=== PATIENT | female | born 1990 | race African-American/Black ===

== ENCOUNTER 2020-05-11 01:41 | Day surgery (SDC) | payer SELFPAY ==
[2020-05-11 02:08] VITALS: BMI 30.4
--- NOTE | 2020-05-11 03:21 | PDOC.FPROB ---
FMR OB H&P: HPI - History of Present Illness Chief Complaint: Vaginal bleeding Indentification: 29 yo @ 31.4 wks here for vaginal bleeding History of Present Illness: Patient reports vaginal bleeding that started at 0000 on 05/11 when she went to the bathroom. She noticed blood in the toilet bowel that turned the water red. She also noted blood when wiping. After coming to the hospital, she used the restroom and noted one more episode of injury prevention coordinator spotting. She denies intercourse or placing anything in her vagina for past 24-48 hrs. She reports that since the bleeding episode at 000, she has felt more frequent ctx-approximately every 10 minutes. She previously had irregular ctx. She denies dysuria, abdominal pain, vaginal discharge, vaginal LOF, nausea, vomiting, fever, and chills. She endorses good FM. She has never had bleeding in her . She is scheduled for repeat US on 05/13, prior growth needed better visualization, placenta was posterior on last US. Primary Care Physician: EDVIN FMR OB H&P: Current - Care : 2 Para: 1 Gestational age: 31.4 Due date: 07/09/2020 Dating Criteria: 9.5 week US Total weight gain: 1 lb Course/Complications: GDM-2 hr GTT with 2 hr glucose of 153 - OB Labs Blood type: A RH: positive Antibody Screen: negative HIV: negative HepBsAg: negative Rubella: immune Gonorrhea: negative Chlamydia: negative Pap Smear: NILM 1 hour gtt: fasting 81, 1 hr 175, 2 hr 153 GBS: unknown H&H: 30.5, 10.2 Platelets: 311 - Anatomy Survey Anatomy survey: Growth US completed, Hadlock 67, poor visualization, no evidence of placenta previa. Scheduled for repeat on 05/13. FMR OB H&P: History - Past Medical History PMH: none - OB History OB History: 1 2.5 yrs ago, uncomplicated - HEAD OF DIGITAL ADVERTISING & INTEGRATION History HEAD OF DIGITAL ADVERTISING & INTEGRATION History: Pap NILM before - Surgical History Sx History: none - Social History Social History: Lives at home with FOB and son - Family History Family History: Father with DM2 FMR OB H&P: Medications - Current Home Medications: Medication Instructions Recorded Confirmed Type 21/Iron Fu/Folic Acid 1 tablet PO DAILY 11/30/20 11/30/20 History [ Complete Caplet] Allergies/Adverse Reactions: Allergies Allergy/AdvReac Type Severity Reaction Status Date / Time No Known Allergies Allergy Verified 05/11/20 02:08 FMR OB H&P: ROS - Review of Systems General: denies: fever/chills, weight/appetite/sleep changes ENT: denies: nasal congestion, rhinorrhea Cardiovascular: denies: chest pain, palpitation Respiratory: denies: cough, congestion Gastrointestinal: denies: abdominal pain, diarrhea, constipation Genitourinary (Female): reports: vaginal bleeding, contractions. denies: incontinence, dysuria, vaginal discharge, vaginal pain, vaginal pressure Musculoskeletal: denies: pain, stiffness Neurologic: denies: syncope, headache FMR OB H&P: Vital Signs - Maternal Vital signs: BP 114/65 HR 87 SpO2 99 T 98.2 Wt 85.792 kg 5ft 6in - Heart Tones Baseline: 135 Variability: moderate Acceleration: present Deceleration: absent Category: category 1 [place] contractions every: 5 mins, irregular FMR OB H&P: Physical Exam - Physical Exam General: NAD, awake, alert and oriented HEENT: normocephalic and atraumatic, grossly normal vision, grossly normal hearing Heart: RRR, normal S1/S2, no murmurs/rubs/gallops General: CTAB, no respiratory distress, good air movement Abdomen: soft, gravid, non-tender, bowel sound present FMR OB H&P: A/P Discussion: Date/Time: 05/11/20 0319 29 yo @ 31.4 wks here for vaginal bleeding Vaginal bleeding - Concern for placenta previa vs other source of bleeding - Obtain US to evaluate for intrauterine/placental causes - speculum exam after US - monitor VS - Continuous FM - 1L LR bolus ANNY - aware, will monitor This H&P was discussed with Dr. Quijano who agree with the above documentation and plan. Addendum - Attending - Attending Attestation Date/Time: 05/11/201930 I personally evaluated the patient and discussed the management with Dr. Painter. I agree with the History, Examination, Assessment and Plan documented above with any addition or exceptions noted below.
[2020-05-11] MEDS ORDERED: hydrALAZINE 20 MG/ML VIAL SLOW IVP PRN (03:29)
[2020-05-11] MEDS ORDERED: Lactated Ringer's 1,000 ML IV SCH ×2 (03:30→05:30)
--- NOTE | 2020-05-11 05:23 | PDOC.BPN ---
- Brief Progress Note Patient doing well, contractions slowing down per patient and monitor. FHT 140, cat 1,ctx irregular Speculum exam:copious thick, white discharge, no blood, mucosal irritation VP3 sent, IVF started with 2 1L boluses. Will empirically treat with Diflucan Likely DC after diflucan given and bolus finishes. Case discussed with Dr. Quijano.
[2020-05-11] MEDS ORDERED: Fluconazole 100 MG TAB PO SCH (06:00)
--- NOTE | 2020-05-11 08:31 | ULT ---
PRELIMINARY REPORT/[facility]/EMERGENCY AFTER HOURS PROCEDURE: EXAM: US Obstetrical, Complete >14 weeks. CLINICAL HISTORY: HX: EPISODE OF VAG BLEEDING AT 31WKS. BLEEDING NOW RESOLVED. TECHNIQUE: Transabdominal imaging of the maternal pelvis and a > 14 week gestation with image documen tation. COMPARISON: None provided. FINDINGS: FETUS: There is a single living intrauterine gestation, estimated gestational age 33 weeks 2 days POSITION: position is vertex. HEART RATE: The heart rate is 136 beats per minute. BIOMETRICS: Based on composite biometry, the estimated gestational age by ultrasound is 33 weeks 2 days cor responding to the new date of 06/27/2020. The estimated weight is 2187 g. ANATOMIC SURVEY: The visualized anatomy is unremarkable. PLACENTA: The placenta is located to the RIGHT. No sonographic evidence for previa or abruption. AMNIOTIC FLUID: Within normal limits. The JUAN measures 16.5 cm CERVIX: Closed. Unremarkable as visualized. Measures 2.83.0 centimeters IMPRESSION: Single viable intrauterine . No acute abnormality. ELECTRONICALLY SIGNED BY: Brad Lucero MD May 11, 2020 4:33:02 AM CNC FIELD SERVICE ENGINEER This report is intended for review by the ordering physician only, in accordance of law. If you recei ve this report in error, please call [facility] at [phone]. FINAL REPORT OB ULTRASOUND: INDICATION: Vaginal bleeding. FINDINGS: 33 weeks and 2 days gestation by ultrasound. heart rate recorded at 136 beats/minute. Viable in trauterine . I am in agreement with the preliminary report issued by [facility]. POS: OFF
== END 2020-05-11 08:39 | disposition home or self-care (01) ==
LOC: L&D/OP 01:41
PROVIDERS: ATTEND Family Medicine
DX: O46.93 Antepartum hemorrhage, unspecified, third trimester (principal); O24.410 Gestational diabetes mellitus in pregnancy, diet controlled; Z3A.31 31 weeks gestation of pregnancy
CPT/HCPCS: 76815; 87480; 87510; 87660; 96360; 96361; 99283

== ENCOUNTER 2020-06-03 15:02 | Day surgery (SDC) | payer SELFPAY ==
[2020-06-03] MEDS ORDERED: hydrALAZINE 20 MG/ML VIAL SLOW IVP PRN (15:05)
--- NOTE | 2020-06-03 15:11 | PDOC.FPROB ---
FMR OB H&P: HPI - History of Present Illness Chief Complaint: Decreased movement Indentification: 30 yo at 34.6 wga by LMP/9.5 wk US History of Present Illness: Patient is a 30 yo at 34.6 wga by LMP/9.5 wk US who presents today with complaint of decreased movement for last 2 days. She has only felt the baby kick 1 or 2 times in the last 2 days. Patient was seen earlier today by her PCP Dr. Ayon at [facility] and was told to come to L&D for evaluation. Denies any LOF, vaginal bleeding, contractions, cramping, abdominal pain or back pain. Additionally patient has noticed a thick white vaginal discharge for the last few days. Denies any itching, burning, dysuria. Primary Care Physician: Nita FMR OB H&P: Current - Care : 2 Para: 1001 Gestational age: 34.6 Due date: 07/09/2020 Dating Criteria: LMP c/w 9.5 wk sono Course/Complications: Anemia of , Obesity, Glucose intolerance - OB Labs Blood type: A RH: positive Antibody Screen: negative HIV: negative RPR: negative HepBsAg: negative Rubella: immune Quad screen: unknown (not done) Urine drug screen: not done Gonorrhea: negative Chlamydia: negative Pap Smear: NILM in November 2019 3 hour GTT: 2 hr (81/175/153) GBS: negative H&H: 10.2/30.5 on 03/11/2020, CBC collected in office today Platelets: 311 - First Trimester Ultrasound First trimester: dating U/S at 9.5 wks - Anatomy Survey Anatomy survey: Hadlock 67.7%, borderline large cisterna magna (as of 05/12) - Additional Ultrasound Additional: F/U growth U/S on 05/12: Hadlock 86.3%, EFW 2170 g FMR OB H&P: History - Past Medical History PMH: denies - OB History OB History: 1 in 2018, uncomplicated - DYNAMITER History DYNAMITER History: Pap NILM in November 2019 - Surgical History Sx History: denies - Social History Social History: Lives at home with FOB and son. Denies tobacco, alcohol, or other drug use. - Family History Family History: T2DM in Father FMR OB H&P: Medications - Current Home Medications: Medication Instructions Recorded Confirmed Type 21/Iron Fu/Folic Acid 1 tablet PO DAILY 05/11/20 06/03/20 History [ Complete Caplet] Allergies/Adverse Reactions: Allergies Allergy/AdvReac Type Severity Reaction Status Date / Time No Known Allergies Allergy Verified 06/03/20 15:47 FMR OB H&P: ROS - Review of Systems General: denies: fever/chills, fatigue, recent trauma Eyes: denies: vision changes ENT: denies: nasal congestion, sore throat Cardiovascular: denies: chest pain, palpitation, edema Respiratory: denies: cough, congestion, shortness of breath Gastrointestinal: denies: abdominal pain, cramping, nausea, vomiting, diarrhea, constipation Genitourinary (Female): reports: vaginal discharge (white, thick). denies: dysuria, vaginal pain, vaginal bleeding, contractions, vaginal pressure Musculoskeletal: denies: pain, tenderness, swelling Neurologic: denies: numbness, weakness, loss of counsciousness, headache Integumentary: denies: itching, rash FMR OB H&P: Physical Exam - Physical Exam General: NAD, awake, alert and oriented HEENT: normocephalic and atraumatic, MMM, conjunctiva clear, no scleral icterus, grossly normal vision, grossly normal hearing Neck: supple, FROM Chest: non-tender to palpation Heart: RRR, normal S1/S2, no murmurs/rubs/gallops, pulses present, no edema General: CTAB, no respiratory distress, good air movement, no rales/rhonchi, no wheezing Abdomen: soft, gravid, non-tender Musculoskeletal: normal gait and station, pulses present, FROM in all four extremities Neurological: sensation to pain,touch and proprioception grossly normal, no focal deficit Skin: no rash, good tugor, no jaundice Lymphatic: no unusual bruising or bleeding Psychiatric: intact recent and remote memory, good judgement and insight, normal mood and affect - Pelvic Exam Vulva: normal hair distribution Deviation from normal: thick white vaginal discharge on exam Membranes: intact FMR OB H&P: A/P - Problem List (1) Decreased movement affecting management of mother, antepartum Status: Acute Code(s): O36.8190 - DECREASED MOVEMENTS, UNSP TRIMESTER, UNSP Qualifiers: Fetus number: single or unspecified fetus Qualified Code(s): O36.8190 - Decreased movements, unspecified trimester, not applicable or unspecified (2) 34 weeks gestation of Status: Acute Code(s): Z3A.34 - 34 WEEKS GESTATION OF (3) Vaginal discharge during in third trimester Status: Acute Code(s): O26.893 - OTH RELATED CONDITIONS, THIRD TRIMESTER; N89.8 - OTHER SPECIFIED NONINFLAMMATORY DISORDERS OF VAGINA (4) Anemia affecting in third trimester Status: Acute Code(s): O99.013 - ANEMIA COMPLICATING , THIRD TRIMESTER (5) Obesity affecting Status: Acute Code(s): O99.210 - OBESITY COMPLICATING , UNSPECIFIED TRIMESTER Qualifiers: Trimester: third trimester Qualified Code(s): O99.213 - Obesity complicating , third trimester (6) Glucose intolerance of Status: Acute Code(s): O99.810 - ABNORMAL GLUCOSE COMPLICATING Disposition: 30 yo @ 34.6 wks here for decreased movement: Decreased Movement in Third Trimester - Obtain BPP US and NST to evaluate - monitor VS - Continuous FM Vaginal Discharge -will obtain VP3 swab -call patient with results, she has follow up scheduled at [facility] on 06/08/2020 A1GDM -aware, continue to monitor Anemia of -CBC drawn in [facility] clinic earlier today -on Ferrous sulfate 325 mg PO BID Obesity -aware, continue to monitor Dispo: Stable, will plan to obtain BPP and NST to assess status. Will also obtain VP3 given observed vaginal discharge. ADDENDUM: 06/03/2020, 1630 BPP 8/8 with JUAN of 12.5 cm, vertex position NST reactive and reassuring Total BPP score 10/10. Has follow up with Dr. Ayon already scheduled for 06/08/2020 at [facility]. Will call with VP3 results and provide treatment at PCP appt if necessary. Discharge to home in stable condition. Discussion: Date/Time: 06/03/20 4102 This H&P was discussed with Dr. Mckenzie and Dr. Bhardwaj who agree with the above documentation and plan. Signature: Natalee Chang DO, PGY-2 Addendum - Attending - Attending Attestation Date/Time: 06/07/20 1135 I personally evaluated the patient and discussed the management with Dr. Chang on 06/03/20 I agree with the History, Examination, Assessment and Plan documented above with any addition or exceptions noted below - 30 yo @34.6 weeks here for decrteased movement. BPP/nST 03/21 and patient now feeling more movement. D/c home and f/u as scheduled.
--- NOTE | 2020-06-03 16:11 | ULT ---
Sonographic biophysical profile exam HISTORY: Diminished movement. Third trimester gestation. FINDINGS: At sonography, good tone, gross movements, and breathing movements were demonstrated. Amniotic fluid index 12.5. IMPRESSION : Sonographic biophysical profile score 8/8.
[2020-06-03 17:01] VITALS: BP 118/73; BMI 32.9
== END 2020-06-03 16:39 | disposition home or self-care (01) ==
LOC: L&D/OP 15:02
PROVIDERS: ATTEND Family Medicine
DX: O36.8130 Decreased fetal movements, third trimester, not applicable or unspecified (principal); O26.893 Other specified pregnancy related conditions, third trimester; N89.8 Other specified noninflammatory disorders of vagina; O99.013 Anemia complicating pregnancy, third trimester; D64.9 Anemia, unspecified; O99.213 Obesity complicating pregnancy, third trimester; E66.9 Obesity, unspecified; O24.410 Gestational diabetes mellitus in pregnancy, diet controlled; Z3A.34 34 weeks gestation of pregnancy
CPT/HCPCS: 76819; 87480; 87510; 87660; 99283

== ENCOUNTER 2020-06-29 09:12 | Outpatient (CLI) | payer OTHER ==
[2020-06-29 18:28] LABS: SARS-CoV-2 PCR by NAA Not Detected (NotDetected)
== END 2020-06-29 09:13 | disposition home or self-care (01) ==
LOC: LABBT 09:12
PROVIDERS: ATTEND Student in an Organized Health Care Education/Training Program
DX: O09.93 Supervision of high risk pregnancy, unspecified, third trimester (principal); Z20.822 Contact with and (suspected) exposure to COVID-19
CPT/HCPCS: 87635; U0003; U0005

== ENCOUNTER 2020-07-02 05:30 | Inpatient (IN) | payer MEDICAID, OTHER, SELFPAY ==
[~2020-07-02 05:30] MED LIST: Carboprost 250 MCG/ML AMP IM PRN; Lidocaine 1% (PF) 30 ML VIAL SC PRN; Methylergonovine 0.2 MG/ML VIAL IM PRN; Misoprostol 200 MCG TAB PR PRN; NS w/ Oxytocin 30 units 500 ML IV PRN; Ondansetron PF 4 MG/2 ML Vial IVP PRN; Promethazine HCl 25 MG/ML VIAL IM PRN; hydrALAZINE 20 MG/ML VIAL SLOW IVP PRN
--- NOTE | 2020-07-02 10:05 | PDOC.FPROB ---
FMR OB H&P: HPI - History of Present Illness Chief Complaint: mIOL Indentification: 30 y/o 2 39.0 wga by 9.5 wk pio presents today for mIOL History of Present Illness: Pt presents today for mIOL due to A2GDM and obesity. She has been doing well. No questions or concerns at this time. She endorses good FM. Denies any LOF, VB, VD, dysuria, hematuria, cloudy urine. No CP/SOB, vision changes, abdominal pain, N/V/D at this time. She last ate this AM. Primary Care Physician: EDVIN: Gabo FMR OB H&P: Current - Care : 2 Para: 1 Gestational age: 39.0 wga Due date: 07/09/2020 Dating Criteria: 9.5 wk sono - OB Labs Blood type: A RH: positive Antibody Screen: negative HIV: negative RPR: negative HepBsAg: negative Rubella: immune Gonorrhea: negative Chlamydia: negative Pap Smear: NILM 11/2019 1 hour gtt: 81 3 hour GTT: 153--2 hour GBS: negative Platelets: 311 FMR OB H&P: History - Past Medical History PMH: -none - OB History OB History: Preg #1 2018: at 39.0 wga, no complications - HAND ENGRAVER History HAND ENGRAVER History: -no STI hx - Surgical History Sx History: -none - Social History Social History: -no TAD -FOB involved - Family History Family History: - FMR OB H&P: Medications - Current Home Medications: Medication Instructions Recorded Confirmed Type 21/Iron Fu/Folic Acid 1 tablet PO DAILY 05/11/20 07/02/20 History [ Complete Caplet] Allergies/Adverse Reactions: Allergies Allergy/AdvReac Type Severity Reaction Status Date / Time No Known Allergies Allergy Verified 06/03/20 15:47 FMR OB H&P: ROS - Review of Systems General: denies: fever/chills, fatigue Eyes: denies: eye pain, vision changes ENT: denies: nasal congestion, rhinorrhea, sinus pain/pressure, ear pain, sore throat Cardiovascular: denies: chest pain, palpitation, edema Respiratory: denies: cough, congestion, shortness of breath Gastrointestinal: denies: abdominal pain, indigestion, bloating, cramping, nausea, vomiting, diarrhea, constipation Genitourinary (Female): denies: incontinence, dysuria, hematuria, polyuria, hesitancy, vaginal discharge, vaginal pain, vaginal bleeding, contractions Musculoskeletal: denies: pain, stiffness, tenderness Neurologic: denies: numbness, weakness Psychological: denies: depression, anxiety FMR OB H&P: Vital Signs - Maternal Vital signs: BP: 125/70 HR 92, Temp 99.2, RR 12 - Heart Tones Baseline: 150 Variability: moderate Acceleration: absent Deceleration: absent Category: category 1 [place] contractions every: none seen FMR OB H&P: Physical Exam - Physical Exam General: NAD, awake, alert and oriented HEENT: normocephalic and atraumatic Neck: supple Chest: no lesions Heart: RRR, normal S1/S2, no murmurs/rubs/gallops, pulses present General: CTAB, no respiratory distress, good air movement, no rales/rhonchi, no wheezing, no retractions Abdomen: soft, gravid Musculoskeletal: pulses present, FROM in all four extremities Skin: no rash, good tugor, capillary refill <2 seconds Lymphatic: no unusual bruising or bleeding Psychiatric: intact recent and remote memory, good judgement and insight, normal mood and affect - Pelvic Exam Vulva: normal hair distribution, no masses, no lesions, no discharge, no blood Cervix: no masses, no lesions, no blood SVE: 350/-2 FMR OB H&P: A/P Disposition: Pt is a 30 y/o 2 39.0 wga by 9.5 wk sono who presents for mIOL due to A2 GDM and obesity. ##sIUP in third trimester, complicated by diabetes and obesity -Currently at 39.0 wga with EDWIN 07/09/20 -VSS: BP stable 125/70 -FHT: 150s, moderate variability, accels noted -SVE: 3/50/-2, alonzo score calculated at 5 currently Plan: Will order Growth U/s before planning proceeding with cytotec vs. pitocin ##A2 GDM -2HR GTT was 153 based on clinic records -pt has been keeping log at home during , FG 90-100s and 2H PP 120-130s -pt was prescribed Metformin but has not taken it at any point in -growth u/s in clinic showed Hadlock 90% -based on this information, will plan for u/s prior to deciding induction method ##Anemia of -has been taking PNV during -latest Hgb from clinic records 11.4 ##Obesity -aware -see discussion above Plan: Will await growth u/s before beginning induction. Discussion: Date/Time: 07/02/20 1003 This H&P was discussed with Dr. Quijano who agrees with the above documentation and plan. Addendum - Attending - Attending Attestation Date/Time: 07/03/20 5224 I personally evaluated the patient and discussed the management with Dr. Parmar. I agree with the History, Examination, Assessment and Plan documented above with any addition or exceptions noted below.
[2020-07-02 10:16] VITALS: BMI 32.3
[2020-07-02] MEDS: Lactated Ringer's 1,000 ML IV SCH (10:31)
[2020-07-02 10:49] LABS: Hemoglobin 11.9 g/dL (12.0-16.0); Mean Corpuscular HGB CONC 32.9 g/dL (32.0-36.0); Mean Corpuscular Hemoglobin 29.9 pg (27.0-31.0); Mean Corpuscular Volume 90.8 fL (78.0-98.0); Mean Platelet Volume 7.2 fL (7.4-10.4); Platelet Count 276 thou/uL (130-400); RBC Distribution Width 13.5 % (11.5-14.5); Red Blood Cell (RBC) Count 3.98 mill/uL (4.20-5.40); White Blood Cell (WBC) Count 8.8 thou/uL (4.8-10.8)
[2020-07-02 11:29] LABS: Syphilis Antibody Nonreactive (Nonreactive); Syphilis Antibody Index 0.04 S/CO (<1.00 Non-Reactive)
[2020-07-02 12:40] LABS: HBSAg Index 0.17 S/CO (0-0.99); Hep B Surf Ag Non-Reactive S/CO (NonReactive)
[2020-07-02] MEDS ORDERED: NS w/ Oxytocin 10 units 500 ML IV SCH (14:45)
--- NOTE | 2020-07-02 14:55 | ULT ---
Exam: Limited OB ultrasound COMPARISON: 05/11/2020 HISTORY: Assess for growth. Gestational diabetes. FINDINGS: position: Vertex. Shadowing limits evaluation of the lower uterine segment heart tones: 141 bpm Amniotic fluid index: 6.9 cm Placenta: Anterior biometry: Head circumference: Cannot be determined due to position Abdominal circumference: 35.36 cm, 39 weeks 2 days Femur length: 7.64 cm, 39 weeks 0 days Estimated weight is 3678 g +/- 544 g; EFW percentile 71st percentile IMPRESSION: 1. Single intrauterine gestation. There are heart tones 2. Oligohydramnios. JUAN is below the 5th percentile 3. Estimated weight as above. 71st percentile.
--- NOTE | 2020-07-02 17:33 | PDOC.LDPN ---
Labor & Delivery Progress Note - Subjective Subjective: comfortable, no concerns - Objective Vital signs reviewed and normal: yes General: NAD, resting SVE: 4 Effacement: 50% Station: -2 FHT: category 1, variability present [place] contractions every: 4-5 mins Plan: continue plan of care, pitocin for augmentation (pit at 6, continue titration) -: - glucose checks q6hr: last check 116. - plans for epidural. Consider AROM.
[2020-07-02] MEDS ORDERED: Fentanyl 4 mcg/Bup 0.1% Cadd 100 ML ONE (17:52)
[2020-07-02] MEDS ORDERED: ePHEDrine 50 MG/ML VIAL SLOW IVP PRN (18:29)
[2020-07-02] MEDS ORDERED: Naloxone HCl 0.4 mg/ml Vial IVP PRN ×2 (18:29)
[2020-07-02] MEDS ORDERED: Lactated Ringer's 500 ML IV PRN (18:29)
[2020-07-02] MEDS ORDERED: Promethazine HCl 25 MG/ML VIAL IM PRN (18:29)
[2020-07-02] MEDS ORDERED: Acetaminophen 325 MG TAB PO PRN (18:29)
[2020-07-02] MEDS ORDERED: Ondansetron PF 4 MG/2 ML Vial IVP PRN (18:29)
[2020-07-02] MEDS ORDERED: diphenhydrAMINE 50 MG/ML VIAL IVP PRN (18:29)
[2020-07-02] MEDS ORDERED: Communication Order-Pharmacy FS SCH (18:30)
[2020-07-02] MEDS ORDERED: Fentanyl 4 mcg/Bupivacaine 0.1% Cassette 100 ML EPIDURAL SCH (18:30)
--- NOTE | 2020-07-02 20:54 | PDOC.LDPN ---
Labor & Delivery Progress Note - Subjective Subjective: comfortable - Objective Vital signs reviewed and normal: yes General: NAD, resting Uterine fundus: non tender Dilation: 4 Effacement: 75% Station: -1 FHT: category 1 (mod/no decels/no accels) [place] contractions every: 3-5min AROM: clear fluid Plan: continue plan of care -: sIUP - SVE unchanged 80/-1, AROM with clear fluid. Irregular CTX pattern. Pit at 8, will titrate up if no change at next check will place IUPC. - Received epidural, now comfortable A2GDM - Glucose checks q6hr GBS unknown Anemia of Obesity BMI 32
--- NOTE | 2020-07-02 21:46 | PDOC.LDPN ---
Labor & Delivery Progress Note - Subjective Subjective: comfortable - Objective Vital signs reviewed and normal: yes General: NAD, resting Uterine fundus: non tender Dilation: 5 Effacement: 90% Station: -1 FHT: category 2 (140/mod/2 variables immediately after AROM/no accels) [place] contractions every: 2-3min AROM: clear fluid Plan: continue plan of care, pitocin for augmentation -: sIUP - SVE /-1, AROM with clear fluid, last AROM likely forebag. Pit at 10. A2GDM - Glucose checks q6hr GBS unknown Anemia of Obesity BMI 32
--- NOTE | 2020-07-02 23:33 | PDOC.OPDEL ---
OB Operative/Delivery Note Delivery Dr/Surgeon: Dr. Ayon, Dr. Nieves Pre-Delivery Diagnosis: active labor Procedure/Post Delivery Dx: spontaneous vaginal delivery Weeks gestation: 39 Anesthesia: epidural - Additional Findings/Plan Placenta delivered: spontaneous Repaired Obstetrical Laceration: 2nd degree (deep) Estimated blood loss: 300 Compilations/Other Findings: Delivering Physician: Dr. Ezequiel Mcadams Attending Dr. Chow Procedure: Spontaneous Vaginal Delivery Anesthesia: epidural QBL: 300 ml Pre-op Diagnosis: 1. Term 2. A2GDM 3. Anemia of Post-op Diagnosis: 1. Term delivered 2. Same as above Indications: A 30y/o male ->2 presents for IOL for A2GDM Delivery Note: This is 30yo F -> 2 @ 39.0 wks who delivered a viable female infant at 22:51 on 07/02/20. Following an uneventful antepartum course, a vigorous female was delivered over an intact perineum in the occipitoanterior position. Anterior Shoulder and then remainder of the body delivered. The head was held down and mouth and nares were bulb suctioned. 1 minute of delayed cord clamping, then cord was clamped and he was transferred to warming table. Apgars were 8/9 at 1/5 min of life. Nursery at bedside for infant, no resuscitation needed. Cord blood collected and sent to lab. Placenta delivered intact in the [place] presentation with a 3 vessel cord noted. Fundal massage was performed and the fundus was firm. The cervix and vagina were inspected and found to have a deep 2nd degree posterior perineum laceration which was repaired with 3-0 vicryl on SH, hemostasis was achieved. Infant on mother for skin to skin in good condition and will go to nursery for routine care. Patient tolerated delivery well and will transfer to after routine recovery/care. Post delivery plan: routine recovery Addendum - Attending - Attending Attestation Date/Time: 07/26/20 4206 I, Dashawn Chow MD, personally evaluated the patient and discussed indications for the procedure described by Dr. Ayon on 07/02/20. I directly supervised and participated in the Spontaneous Vaginal Delivery and I agree with the description of procedure as documented above without any addition or exceptions.
[2020-07-03] MEDS ORDERED: Lanolin Ointment 7 GM TUBE TOP PRN (01:52)
[2020-07-03] MEDS ORDERED: NS / Oxytocin 40 units/1000ml 1,000 ML IV SCH (01:52)
[2020-07-03] MEDS ORDERED: Preparation H Ointment 28 GM TUBE PR PRN (01:52)
[2020-07-03] MEDS ORDERED: Bisacodyl 10 MG SUPP PR PRN (01:52)
[2020-07-03] MEDS ORDERED: hydrALAZINE 20 MG/ML VIAL SLOW IVP PRN (01:52)
[2020-07-03] MEDS: Lactated Ringer's 1,000 ML IV SCH ×3 (02:18→21:53)
[2020-07-03] MEDS: Ibuprofen 800 MG TAB PO SCH ×3 (05:51→21:24)
--- NOTE | 2020-07-03 07:49 | PDOC.PP ---
Post Progress Note Post Day #: 1 Subjective: pain well controlled, light lochia, amount of period concerned about baby latching and not feeding well tolerating PO well PO intake tolerated: yes Flatus: yes Ambulation: yes Vital Signs (12 hours) Temp Pulse Resp BP Pulse Ox 07/03/20 03:25 99.1 F 99 18 128/68 98 07/03/20 02:25 98.9 F 98 18 113/57 L 98 07/03/20 01:25 99.5 F 93 18 115/66 98 Weight Weight 90.718 kg - Physical Examination General: NAD Cardiovascular: no m/r/g, RRR Respiratory: clear to auscultation bilaterally, non-labored breathing Abdominal: + bowel sounds, lochia, no distention, appropriately TTP Extremities: negative homans (B) Skin: no rash Neurological: no gross focal deficits Psychiatric: A&Ox3, normal affect Result Diagrams: 07/02/20 10:38 Additional Labs: Post Labs Hep Bs Antigen Non-Reactive S/CO (NonReactive) 07/02/20 10:39 Blood Type A POSITIVE 07/02/20 13:29 - Assessment/Plan Pt is a 30 y/o -> 2000 delivered via @ 39.0 wga by 9.5 wk sono after mIOL due to A2 GDM 1. Term delivered via PP day #1 - motrin/tylenol/ice packs and heating pads for pain control - repeat cbc in AM - continue PO iron - nurse to give breast pump and help with feedings, lactaction consulted. 2. A2 GDM -pt has been keeping log at home during , FG 90-100s and 2H PP 120-130s -pt was prescribed Metformin but did not ever start taking medication toward the end of her . -growth u/s in clinic showed [place] 90% - will need GTT PP 3. Anemia of -has been taking PNV and iron during -latest Hgb from clinic records 11.4 - AM CBC and continue PO iron Dispo: inpt PP, >48 hr anticipated. Possible d/c home tomorrow Addendum - Attending - Attending Attestation Date/Time: 07/03/20 1412 I personally evaluated the patient and discussed the management with Dr. Parmar. I agree with the History, Examination, Assessment and Plan documented above with any addition or exceptions noted below.
[2020-07-03] MEDS ORDERED: Adacel (T-DAP) 0.5 ML SYRINGE IM ONE (09:00)
[2020-07-03] MEDS: Prenatal Vitamin 1 TAB PO SCH (09:17)
[2020-07-03] MEDS: Docusate Calcium (SURFAK) 240 MG CAP PO SCH ×2 (09:18→21:24)
[2020-07-03] MEDS: Ferrous Sulfate 325 MG TAB PO SCH ×2 (09:18→13:22)
[2020-07-03] MEDS: Milk Of Magnesia 30 ML UDCUP PO PRN (09:42)
[2020-07-04] MEDS: Ibuprofen 800 MG TAB PO SCH (05:06)
[2020-07-04] MEDS ORDERED: Benzocaine-Menthol 82.5 ML CAN TOP PRN (05:18)
--- NOTE | 2020-07-04 08:35 | PDOC.PP ---
Post Progress Note Post Day #: 2 Subjective: doing very well and wnats to gohome today breast feeding well, and pump at bedside bonding well with infant desires nexplanon PP PO intake tolerated: yes Flatus: yes Ambulation: yes Weight Weight 90.718 kg - Physical Examination General: NAD Cardiovascular: no m/r/g, RRR Respiratory: clear to auscultation bilaterally, non-labored breathing Abdominal: + bowel sounds, lochia, no distention, appropriately TTP Fundus firm & at: just below umbilicus Extremities: negative homans (B) Skin: no rash Neurological: no gross focal deficits Psychiatric: A&Ox3, normal affect Result Diagrams: 07/02/20 10:38 Additional Labs: Post Labs Hep Bs Antigen Non-Reactive S/CO (NonReactive) 07/02/20 10:39 Blood Type A POSITIVE 07/02/20 13:29 - Assessment/Plan Pt is a 30 y/o -> 2000 delivered via @ 39.0 wga by 9.5 wk sono after mIOL due to A2 GDM 1. Term delivered via PP day #2 - motrin/tylenol/ice packs and heating pads for pain control - continue PO iron for 6 weeks - breast pump and help with feedings, lactaction consulted. 2. A2 GDM -pt has been keeping log at home during , FG 90-100s and 2H PP 120-130s -pt was prescribed Metformin but did not ever start taking medication toward the end of her . -growth u/s in clinic showed [place] 90% - will need GTT PP 3. Anemia of -has been taking PNV and iron during -latest Hgb from clinic records 11.4, 11.9 before delivery. -continue PO iron for 6 week PP Dispo: inpt PP, >48 hr anticipated. D/C today Addendum - Attending - Attending Attestation Date/Time: 07/04/20 1246 I personally evaluated the patient and discussed the management with Dr. Ayon I agree with the History, Examination, Assessment and Plan documented above with any addition or exceptions noted below. 30 yo [id number] now female s/p uncomplicated on 07/02/20 Patient doing well. No complications in pp period. Minimal lochia. Nontender uterus. Ambulating well. Some vulvar edema but improving. Breast feeding. Would like Nexplanon for contraception. Will follow up with [facility] in 2 wks. Will need 2 hour gtt at 6 wk pp visit due to A2GDM during . Continue healthy lifestyle changes and daily exercise due to risk for overt DM. Ok to d/c to home today. Monitor for PPD and preE. [place]
[2020-07-04] MEDS: Prenatal Vitamin 1 TAB PO SCH (08:42)
[2020-07-04] MEDS: Docusate Calcium (SURFAK) 240 MG CAP PO SCH (08:42)
[2020-07-04] MEDS: Ferrous Sulfate 325 MG TAB PO SCH (08:43)
[2020-07-04] MEDS: Milk Of Magnesia 30 ML UDCUP PO PRN (08:46)
[2020-07-04 10:15] VITALS: BP 114/62; TEMP 97.5
== END 2020-07-04 13:15 | disposition home or self-care (01) | DRG 807 ==
LOC: L&D 09:47 → 3SW 07-03 01:18
PROVIDERS: ADMIT Family Medicine; ATTEND Family Medicine
PROC: 10E0XZZ Delivery of Products of Conception, External Approach (ICD-10-PCS; principal; 2020-07-02)
PROC: 0KQM0ZZ Repair Perineum Muscle, Open Approach (ICD-10-PCS; 2020-07-02)
PROC: 10907ZC Drainage of Amniotic Fluid, Therapeutic from Products of Conception, Via Natural or Artificial Opening (ICD-10-PCS; 2020-07-02)
PROC: 3E0P7VZ Introduction of Hormone into Female Reproductive, Via Natural or Artificial Opening (ICD-10-PCS; 2020-07-02)
PROC: 3E033VJ Introduction of Other Hormone into Peripheral Vein, Percutaneous Approach (ICD-10-PCS; 2020-07-02)
DX: O24.420 Gestational diabetes mellitus in childbirth, diet controlled (principal); Z37.0 Single live birth; Z20.822 Contact with and (suspected) exposure to COVID-19; O70.1 Second degree perineal laceration during delivery; O99.02 Anemia complicating childbirth; D64.9 Anemia, unspecified; O99.214 Obesity complicating childbirth; E66.9 Obesity, unspecified; Z3A.39 39 weeks gestation of pregnancy
CPT/HCPCS: 36415; 36416; 51702; 76815; 85027; 86780; 86850; 86900; 86901; 87340; J2590